=== PATIENT | female | born 1985 | race Two or more races ===

== ENCOUNTER 2016-09-10 17:33 | Emergency (ER) | payer BC ==
[~2016-09-10] VITALS: Ht 160 cm; Wt 70.8 kg
[2016-09-10 20:39] VITALS: BP 128/88
== END 2016-09-10 20:39 | disposition home or self-care (01) ==
LOC: ED 17:33
DX: S39.012A Strain of muscle, fascia and tendon of lower back, initial encounter (principal); R55 Syncope and collapse; X58.XXXA Exposure to other specified factors, initial encounter; Y93.89 Activity, other specified; Y99.8 Other external cause status; Y92.89 Other specified places as the place of occurrence of the external cause
CPT/HCPCS: J1885